=== PATIENT | female | born 1985 | race Caucasian/White ===

== ENCOUNTER 2020-10-11 20:28 | Emergency (ER) | payer MEDICARE ==
[2020-10-11] MEDS ORDERED: ABILIFY5 MG PO (20:41)
[2020-10-11] MEDS ORDERED: CYMBALTA30 M1 PO (20:41)
[2020-10-11 22:00] VITALS: BP 120/77
== END 2020-10-11 22:15 | disposition home or self-care (01) ==
LOC: ED 20:28
DX: N83.202 Unspecified ovarian cyst, left side (principal)
CPT/HCPCS: J1885